=== PATIENT | female | born 1985 | race African-American/Black ===

== ENCOUNTER 2017-08-16 20:05 | Emergency (ER) | payer MEDICAID ==
[~2017-08-16] VITALS: Ht 170.2 cm; Wt 106.1 kg
[2017-08-16 20:46] LABS: Basophils # (auto) 0.1 uL; Basophils % (auto) 0.8 % (0.0-2.0); Eosinophils # (auto) 0.1 uL; Eosinophils % (auto) 0.7 % (0.0-7.0); Hematocrit 34.1 % (36.0-46.0); Hemoglobin 11.4 g/dL (12.2-16.2); Lymphocytes % (auto) 26.8 % (10.0-50.0); Mean Corpuscular Hemoglobin 27.8 pg (28.0-32.0); Mean Corpuscular Hgb Conc. 33.3 g/dL (32.0-36.0); Mean Corpuscular Volume 83.4 fL (80.0-100.0); Monocytes # (auto) 0.7 uL; Neutrophils # (auto) 7.3 uL; Neutrophils % (auto) 65.7 % (37.0-80.0); Nucleated Red Blood Cells % 0.1 %; Platelet Count (auto) 247 10^3/uL (140-450); Red Blood Cells 4.09 10^6/uL (4.0-5.20); Red Cell Distribution Width 14.8 % (11.8-14.3); White Blood Cell 11.1 10^3/uL (4.4-10.8)
[2017-08-16 21:06] LABS: Albumin 3.3 g/dL (3.4-5.0); BUN/Creatinine Ratio 12.5; Bilirubin, Total 0.2 mg/dL (0.2-1.0); Calcium 8.8 mg/dL (8.5-10.1); Potassium 3.7 mmol/L (3.5-5.1)
[2017-08-16 21:10] LABS: INR 0.96 (0.9-1.15); Partial Thromboplastin Time 21.1 sec (23.78-33.04); Prothrombin Time 10.3 sec (9.27-12.13)
[2017-08-17 09:55] LABS: Urine Bacteria FEW /hpf (None Seen); Urine Blood 3+ /uL (Negative); Urine Mucus FEW (None Seen); Urine Specific Gravity 1.018 (1.001-1.035); Urine WBC 213 /hpf (0 - 5)
[2017-08-17 10:43] VITALS: BP 127/63
== END 2017-08-17 10:57 | disposition home or self-care (01) ==
LOC: ER 20:05
DX: N93.9 Abnormal uterine and vaginal bleeding, unspecified (principal)
CPT/HCPCS: 36415; 76801; 76817; 80053; 81001; 81025; 84702; 85025; 85610; 85730; 99285; J7030

== ENCOUNTER 2018-02-06 16:06 | Emergency (ER) | payer MEDICAID ==
[~2018-02-06] VITALS: Ht 170.2 cm; Wt 106.6 kg
[2018-02-06 16:21] VITALS: BP 137/68
== END 2018-02-06 17:47 | disposition home or self-care (01) ==
LOC: ER 16:08
DX: K04.7 Periapical abscess without sinus (principal)

== ENCOUNTER 2019-03-17 22:37 | Emergency (ER) | payer SELFPAY ==
[~2019-03-17] VITALS: Ht 170.2 cm; Wt 104.3 kg
[2019-03-18 01:02] VITALS: BP 155/78
[2019-03-18] MEDS ORDERED: DexAMETHasone SOD PHOS 10MG/1ML VIAL INJ IM ONE (01:30)
[2019-03-18] MEDS ORDERED: ACETAMINOPHEN/CODEINE#3 (300/30mg) TAB PO ONE (01:30)
== END 2019-03-18 02:01 | disposition home or self-care (01) ==
LOC: ER 22:38
DX: J06.9 Acute upper respiratory infection, unspecified (principal)
CPT/HCPCS: 96372; 99283; J1100